=== PATIENT | female | born 1950 | race Caucasian/White ===

== ENCOUNTER → 2021-07-14 | Outpatient (CLI) | payer OTHER ==
[~2021-07-14] VITALS: Ht 152.4 cm; Wt 62.5 kg
[~2021-07-14] MED LIST: ASCO500C18 PO; CALC-1125 PO; CHOL2000 PO; CHRO1TAB7 PO; CYAN50009 PO; DULO60CA64 PO; FIBER WELL PO; FOLATE PO; MELO10CA3 PO; MV-M1TAB46 PO; PRAV10TA39 PO; VALR1TAB PO
[2021-07-14 13:55] VITALS: BP 159/77
== END | disposition home or self-care (01) ==
LOC: RAH 13:29 → EDUNIT# 13:30
PROVIDERS: ATTEND Orthopaedic Surgery
DX: M17.11 Unilateral primary osteoarthritis, right knee (principal); M25.461 Effusion, right knee; M16.11 Unilateral primary osteoarthritis, right hip; M25.751 Osteophyte, right hip; Z98.890 Other specified postprocedural states
CPT/HCPCS: 73700

== ENCOUNTER 2021-07-15 06:27 | Observation (INO) | payer OTHER ==
[2021-07-14 09:14] VITALS: BP 159/77
[~2021-07-15] VITALS: Ht 152.4 cm; Wt 62.5 kg
[2021-07-15] VITALS (24 sets, daily range): BP systolic 115–153; BP diastolic 57–83
[2021-07-15] MEDS: CEFAZOLIN SODIUM 1 GM VIAL IVP SCH ×3 (06:00→16:54)
[~2021-07-15 06:27] MED LIST changes: +TRANEXAMIC ACID 3,000 MG in 0.9% NACL 250ML 250 ML TP SCH
[2021-07-15] MEDS: LACTATED RINGERS 1000ML 1,000 ML IV SCH ×2 (07:57→14:17)
[2021-07-15] MEDS ORDERED: SUCCINYLCHOLINE CHLORIDE 20 MG/ML 10 ML VIAL ONE (10:11)
[2021-07-15] MEDS ORDERED: PROPOFOL 10 MG/ML 20ML VIAL IV ONE (10:11)
[2021-07-15] MEDS ORDERED: LIDOCAINE PF 100MG/5ML (2%) SYRINGE 5ML ONE (10:11)
[2021-07-15] MEDS ORDERED: FENTANYL CITRATE PF 50 MCG/1 ML 2ML VIAL ONE (10:12)
[2021-07-15] MEDS ORDERED: MIDAZOLAM HCL 1 MG/ML 2ML VIAL ONE ×2 (10:12)
[2021-07-15] MEDS ORDERED: ROCURONIUM 10MG/1ML SYR 10 MG/ML ML ONE (10:12)
[2021-07-15] MEDS ORDERED: TRANEXAMIC ACID 1000MG/10ML IV ONE (10:30)
[2021-07-15] MEDS ORDERED: EPHEDRINE SULFATE 50 MG/ML AMPULE ONE (10:54)
[2021-07-15] MEDS ORDERED: MORPHINE 4 MG SYG IVP PRN (11:00)
[2021-07-15] MEDS ORDERED: 0.9%NACL 1000ML 1,000 ML IV SCH (11:00)
[2021-07-15] MEDS: ACETAMINOPHEN 500 MG TABLET PO SCH ×2 (11:00→19:48)
[2021-07-15] MEDS ORDERED: ONDANSETRON 4MG INJ IVP PRN (11:00)
[2021-07-15] MEDS ORDERED: HYDROCODONE/ACETAMINOPHEN 5/325 MG TAB PO PRN (11:00)
[2021-07-15] MEDS: TRAMADOL HCL 50 MG TABLET PO SCH ×2 (12:00→18:00)
[2021-07-15] MEDS ORDERED: ESMOLOL HCL 10 MG/ML 10 ML VIAL ONE (12:39)
[2021-07-15] MEDS ORDERED: GLYCOPYRROLATE 1 MG/5 ML SYRINGE ONE (12:42)
[2021-07-15] MEDS ORDERED: NEOSTIGMINE 5MG/5ML SYR IV ONE (12:42)
[2021-07-15] MEDS ORDERED: MEPERIDINE-PF 25 MG/ML SYG ONE ×2 (13:22→13:29)
[2021-07-15] MEDS ORDERED: DULOXETINE HCL 30 MG CAP ONE (19:31)
[2021-07-15] MEDS: CELECOXIB 200 MG CAP PO SCH (19:48)
[2021-07-15] MEDS: ASPIRIN 81 MG EC TAB PO SCH (19:48)
[2021-07-15] MEDS: FAMOTIDINE 20MG TAB PO SCH (19:48)
[2021-07-15] MEDS: DULOXETINE HCL 30 MG CAP PO SCH (19:48)
[2021-07-16] VITALS (7 sets, daily range): BP systolic 128–149; BP diastolic 54–80
[2021-07-16] MEDS: CEFAZOLIN SODIUM 1 GM VIAL IVP SCH (01:45)
[2021-07-16] MEDS: TRAMADOL HCL 50 MG TABLET PO SCH ×5 (01:46→23:27)
[2021-07-16] MEDS: ACETAMINOPHEN 500 MG TABLET PO SCH ×3 (03:07→21:03)
[2021-07-16 04:54] LABS: HEMATOCRIT 35.8 % (36-48); MEAN CORPUSCULAR HEMOGLOBIN 28.6 pg (27.0-33.0); MEAN CORPUSCULAR HGB CONC 32.4 g/dL (32.0-36.0); MEAN CORPUSCULAR VOLUME 88.4 fL (79-99); RED BLOOD CELL COUNT(AUTO) 4.05 MIL/uL (4.00-5.50); RED CELL DISTRIBUTION WIDTH 13.2 % (11.0-15.5); WHITE BLOOD COUNT (AUTO) 11.8 K/uL (4.8-10.8)
[2021-07-16 05:08] LABS: CREATININE 0.5 mg/dL (0.5-1.5); POTASSIUM 3.4 mmol/L (3.5-5.1)
[2021-07-16] MEDS: ASPIRIN 81 MG EC TAB PO SCH ×2 (08:19→21:03)
[2021-07-16] MEDS: FAMOTIDINE 20MG TAB PO SCH ×2 (08:19→21:04)
[2021-07-16] MEDS: POLYETHYLENE GLYCOL 3350 17 GM POWD.PACK PO SCH (08:20)
[2021-07-16] MEDS: HYDROCODONE/ACETAMINOPHEN 10/325 MG TAB PO PRN (08:20)
[2021-07-16] MEDS: CELECOXIB 200 MG CAP PO SCH ×2 (08:31→21:03)
[2021-07-16] MEDS ORDERED: KCL 20 MEQ ERTAB PO ONE ×2 (15:00→17:07)
[2021-07-16] MEDS: DULOXETINE HCL 30 MG CAP PO SCH (21:03)
[2021-07-17] MEDS: ACETAMINOPHEN 500 MG TABLET PO SCH ×2 (00:42→13:04)
[2021-07-17 05:00] VITALS: BP 151/81
[2021-07-17] MEDS: TRAMADOL HCL 50 MG TABLET PO SCH ×2 (06:12→13:03)
[2021-07-17 08:07] VITALS: BP 138/77
[2021-07-17] MEDS: ASPIRIN 81 MG EC TAB PO SCH (08:14)
[2021-07-17] MEDS: CELECOXIB 200 MG CAP PO SCH (08:14)
[2021-07-17] MEDS: POLYETHYLENE GLYCOL 3350 17 GM POWD.PACK PO SCH (08:14)
[2021-07-17] MEDS: FAMOTIDINE 20MG TAB PO SCH (08:15)
[2021-07-17] MEDS: HYDROCODONE/ACETAMINOPHEN 10/325 MG TAB PO PRN (08:22)
[2021-07-17 11:35] VITALS: BP 135/76
[2021-07-18] MEDS ORDERED: BISACODYL 10 MG SUPP.RECT RC PRN (11:00)
== END 2021-07-17 17:20 | disposition home or self-care (01) ==
LOC: DAH 06:27 → DAHIP 06:28 → DAH 06:28 → 3AH 13:51
PROVIDERS: ADMIT Orthopaedic Surgery; ATTEND Orthopaedic Surgery
DX: M17.11 Unilateral primary osteoarthritis, right knee (principal); Z20.822 Contact with and (suspected) exposure to COVID-19; R26.89 Other abnormalities of gait and mobility; M24.561 Contracture, right knee; E78.00 Pure hypercholesterolemia, unspecified; M21.061 Valgus deformity, not elsewhere classified, right knee; Z79.899 Other long term (current) drug therapy
CPT/HCPCS: 0055T; 27447; 36415; 64415; 64445; 64447; 76942; 80048; 85027; 87635; 87641; 93005; 96374; 96375; 96376; 97039; C9803; G0378; J0330; J0690; J2001; J2175; J2250; J2270; J2405; J2704; J2710; J3010; J3490; J7030; J7050; J7120